=== PATIENT | female | born 1930 | race Caucasian/White ===

== ENCOUNTER → 2017-03-02 | Outpatient (REF) | payer MEDICARE | LOC: M SFHCPLAZ 17:01 | PROVIDERS: ATTEND Internal Medicine | DX: R19.4 Change in bowel habit (principal) ==

== ENCOUNTER → 2017-06-17 | Outpatient (REF) | payer MEDICARE ==
[2017-06-17 11:36] LABS: MEAN CORPUSCULAR HEMOGLOBIN 29.5 pg (27.0-33.0); MEAN CORPUSCULAR HGB CONC 32.3 g/dl (32.0-36.5); MEAN CORPUSCULAR VOLUME 91.2 fl (80.0-96.0); RED CELL DISTRIBUTION WIDTH 12.6 % (11.5-14.5); WHITE BLOOD COUNT 5.7 K/mm3 (4.0-10.0)
[2017-06-17 11:53] LABS: VITAMIN B12 LEVEL 922 PG/ML (247-911)
[2017-06-17 11:57] LABS: ALBUMIN 3.3 GM/DL (3.2-5.2); ALBUMIN/GLOBULIN RATIO 0.97 (1.00-1.93); ALKALINE PHOSPHATASE 86 U/L (45-117); ALT/SGPT 22 U/L (12-78); ANION GAP 9 MEQ/L (8-16); AST/SGOT 12 U/L (15-37); BILIRUBIN,TOTAL 0.4 MG/DL (0.2-1.0); BLOOD UREA NITROGEN 12 MG/DL (7-18); CALCIUM LEVEL 8.6 MG/DL (8.8-10.2); CARBON DIOXIDE LEVEL 26 MEQ/L (21-32); CHLORIDE LEVEL 108 MEQ/L (98-107); CHOLESTEROL LEVEL 194 MG/DL (<200); CREATININE FOR GFR 0.76 MG/DL (0.55-1.02); GLOMERULAR FILTRATION RATE > 60.0 (>32); GLUCOSE, FASTING 96 MG/DL (83-110); POTASSIUM SERUM 4.5 MEQ/L (3.5-5.1); SODIUM LEVEL 143 MEQ/L (136-145); TOTAL PROTEIN 6.7 GM/DL (6.4-8.2); TRIGLYCERIDES LEVEL 50 MG/DL (<150)
== END ==
LOC: M SFHCPLAZ 08:49
PROVIDERS: ATTEND Internal Medicine
DX: Z00.00 Encounter for general adult medical examination without abnormal findings (principal); Z91.09 Other allergy status, other than to drugs and biological substances; E03.9 Hypothyroidism, unspecified; E78.00 Pure hypercholesterolemia, unspecified; M81.0 Age-related osteoporosis without current pathological fracture; R41.3 Other amnesia

== ENCOUNTER → 2017-08-10 | Outpatient (CLI) | payer MEDICARE ==
[~2017-08-10] MED LIST: LIQUID POLIBAR PLUS 105% w/v 1900ML BTL As Ordered ONE
--- NOTE | 2017-08-10 16:25 | REP ---
BARIUM ENEMA: The procedure was performed by FITZ Corrales under the direct supervision of Dr. Doshi. All imaging was reviewed with Dr. Doshi prior to dictation. TECHNIQUE: The rectal catheter was inserted and the balloon was inflated. Double contrast barium enema was performed. Fluoroscopic spot filming and abdominal radiographs were obtained in multiple projections. FINDINGS: The colon is normal in course and caliber. It is well distended on the double contrast views. There was free flow of contrast and air from rectum to cecum. The colonic mucosal pattern is normal. No polyps or strictures were identified. Sigmoid and left colon diverticula are noted on this examination. IMPRESSION: Sigmoid and left colon diverticula. Fluoroscopy time: 3 minutes and 2 seconds were utilized for this procedure. Reviewed by FITZ Chua 08/10/2017 04:28 PEdited and Signed by Marlon Doshi MD 08/11/2017 07:30 P
== END ==
LOC: M RAD 10:42
PROVIDERS: ATTEND Surgery
DX: R10.84 Generalized abdominal pain (principal); K57.30 Diverticulosis of large intestine without perforation or abscess without bleeding

== ENCOUNTER → 2018-01-25 | Outpatient (REF) | payer MEDICARE | LOC: M LABDRAW1 10:59 | DX: E03.9 Hypothyroidism, unspecified (principal) | CPT/HCPCS: 84443 ==